=== PATIENT | male | born 1985 | race Caucasian/White ===

== ENCOUNTER 2017-07-06 15:33 | Inpatient (IN) | payer SELFPAY ==
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
[2017-07-06 17:17] LABS: % IMMATURE GRANULYOCYTES 0.3 % (0.0-1.1); ABSOLUTE IMMATURE GRANULOCYTES 0.03 10^3/uL (0.00-0.10); ADD DIFF? NO; ADD MORPH? NO; ADD SCAN? NO; ATYPICAL LYMPHOCYTE FLAG 20 (0-99); FRAGMENT RBC FLAG 0 (0-99); HEMATOCRIT 36.6 % (40.0-51.0); HEMOGLOBIN 11.5 g/dL (13.7-17.5); LEFT SHIFT FLG 0 (0-99); LIPEMIA HEMOLYSIS FLAG 80 (0-99); MEAN CELL HEMOGLOBIN 32.2 pg (27.9-34.1); MEAN CELL HEMOGLOBIN CONCENTR. 31.4 g/dL (32.4-36.7); MEAN CELL VOLUME 102.5 fL (81.5-99.8); MEAN PLATELET VOLUME 9.6 fL (8.7-11.7); PLATELET CLUMPS FLAG 0 (0-99); PLATELET COUNT 168 10^3/uL (150-400); RED BLOOD CELL COUNT 3.57 10^6/uL (4.40-6.38)
[2017-07-06 17:31] LABS: ALANINE AMINOTRANSFERASE 56 IU/L (21-72); ALBUMIN 3.9 g/dL (3.5-5.0); ALKALINE PHOSPHATASE 178 IU/L (38-126); ANION GAP 20 mEq/L (8-16); ASPARTATE AMINOTRANSFERASE 45 IU/L (17-59); BILIRUBIN,TOTAL 0.8 mg/dL (0.1-1.4); BILIRUBIN-CONJUGATED 0.7 mg/dL (0.0-0.5); BILIRUBIN-UNCONJUGATED 0.1 mg/dL (0.0-1.1); CALCIUM 8.8 mg/dL (8.5-10.4); CARBON DIOXIDE 24 mEq/l (22-31); CHLORIDE 93 mEq/L (97-110); GLOMERULAR FILTRATION RATE 7; GLUCOSE 81 mg/dL (70-100); POTASSIUM 4.8 mEq/L (3.5-5.2); SODIUM 137 mEq/L (134-144); TOTAL PROTEIN 9.1 g/dL (6.3-8.2)
--- NOTE | 2017-07-06 18:46 | SOAPPROG ---
SOAP Progress Note Assessment/Plan: Assessment: please see dictation # [id number] pager [phone] I discussed my recs with ER team and hospitalist pager [phone] 07/06/17 19:41 Objective: Vital Signs Temp Pulse Resp BP Pulse Ox 37.1 C 80 16 152/97 H 96 07/06/17 15:46 07/06/17 15:46 07/06/17 15:46 07/06/17 15:46 07/06/17 15:46 ICD10 Worksheet Patient Problems: Problems Problem Status Onset Dependent on hemodialysis Acute Encephalopathy Acute Renal failure (ARF), acute on chronic Acute Weakness generalized Acute
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
[2017-07-06] MEDS ORDERED: ONDANSETRON DISINTEGRATING 4 MG TAB PO PRN (20:18)
[2017-07-06] MEDS ORDERED: ACETAMINOPHEN 325 MG TAB PO PRN (20:18)
[2017-07-06] MEDS ORDERED: ONDANSETRON 4 MG/2 ML VIAL IVP PRN (20:18)
[2017-07-06] MEDS: BISOPROLOL FUMARATE 5 MG TAB PO SCH (20:49)
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
--- NOTE | 2017-07-06 20:59 | CPEKG ---
Heart Rate: 81 RR Interval: 741 P-R Interval: 208 QRSD Interval: 100 QT Interval: 384 QTC Interval: 446 P Maribel: 64 QRS Maribel: 10 T Wave Maribel: 96 EKG Severity - ABNORMAL ECG - EKG Impression: SINUS RHYTHM EKG Impression: PROBABLE LEFT ATRIAL ABNORMALITY EKG Impression: LEFT VENTRICULAR HYPERTROPHY WITH ASSOCIATED REPOLARIZATION ABNORMALITIES Electronically Signed By: Karen Lang 07-Jul-2017 10:40:11
[2017-07-06] MEDS ORDERED: traZODone 50 MG TAB PO PRN (21:20)
[2017-07-07 04:55] LABS: ALBUMIN 3.7 g/dL (3.5-5.0); ANION GAP 19 mEq/L (8-16); CALCIUM 8.5 mg/dL (8.5-10.4); CARBON DIOXIDE 20 mEq/l (22-31); CHLORIDE 96 mEq/L (97-110); GLOMERULAR FILTRATION RATE 6; GLUCOSE 81 mg/dL (70-100); SODIUM 135 mEq/L (134-144)
[2017-07-07 05:16] LABS: CREATININE 9.6 mg/dL (0.7-1.3); POTASSIUM 6.3 mEq/L (3.5-5.2)
[2017-07-07] MEDS: BISOPROLOL FUMARATE 5 MG TAB PO SCH ×2 (10:09→21:46)
[2017-07-07] MEDS: CALCIUM ACETATE 667 MG CAP PO SCH ×3 (10:10→17:59)
--- NOTE | 2017-07-07 10:51 | SOAPPROG ---
[facility] Progress Note Assessment/Plan: Assessment:Plan: ESRD-stable on Hd -he wanted to run for 4 hours and have 4 kg removed -this would have amounted to 20ml/kg/hr, well above the accepted max of 12- 13ml -he has had no dialysis for one week -azotemic -overloaded -will plan for Hd again tomorrow Access-stable L sided AVF Renal transplant-failed after 5 years -has intermittent tenderness of allograft per patient's report Dispo-from [facility] -unclear to me if he has a special situation that would qualify him for refugee status or asylum -at this point it appears he has no coverage for outpatient services, but this needs to be investigated -in the meantime, will plan for daily dialysis here as inpatient -if he is uninsured and will be unable to qualify for special assistance or coverage, his chronic treatment option may be to come to hospital for intermittent emergency dialysis -I am happy to see him in my office for other ongoing medical needs, but there is not an option to get free dialysis as an outpatient -to pay out of pocket for dialysis in a free-standing clinic the cost is excessive. This was discussed with patient and his sister 07/07/17 10:45 Subjective: stable on dialysis Objective: Vital Signs Temp Pulse Resp BP Pulse Ox 36.6 C 86 14 157/102 H 94 07/07/17 10:07 07/07/17 10:07 07/07/17 10:07 07/07/17 10:07 07/07/17 10:07 Laboratory Results 07/07/17 04:14 07/06/17 07/07/17 07/08/17 05:59 05:59 05:59 Intake Total 325 Balance 325 Physical Exam - Physical Exam General Appearance: alert, no apparent distress, thin EENT: normal ENT inspection Neck: normal inspection Respiratory: decreased breath sounds, No normal breath sounds, No respiratory distress Cardiac/Chest: regular rate, rhythm, systolic murmur, other (bruit from AVF transmitted into chest) Abdomen: normal bowel sounds, non-tender, soft, other (RLQ renal allograft), No organomegaly, No hepatomegaly, No splenomegaly Skin: normal color, warm/dry Extremities: No swelling Neuro/Psych: no motor/sensory deficits, alert, normal mood/affect, oriented x 3 ICD10 Worksheet Patient Problems: Problems Problem Status Onset Dependent on hemodialysis Acute Encephalopathy Acute Renal failure (ARF), acute on chronic Acute Weakness generalized Acute
--- NOTE | 2017-07-07 15:44 | HOSPPROG ---
Hospitalist Progress Note Assessment/Plan: * hyperkalemia and uremia secondary to end-stage renal disease * Getting dialysis today and tomorrow * history of IgA nephropathy * history of kidney transplant * social - undocumented and thus with no dialysis benefits * Will probably have to come to the hospital for dialysis Subjective: No new complaints Objective: Vital Signs Temp Pulse Resp BP Pulse Ox 36.6 C 83 16 155/106 H 91 L 07/07/17 15:26 07/07/17 15:26 07/07/17 15:26 07/07/17 15:26 07/07/17 15:26 Laboratory Results 07/07/17 04:14 07/06/17 07/07/17 07/08/17 05:59 05:59 05:59 Intake Total 325 Balance 325 - Physical Exam Constitutional: no apparent distress, appears nourished, not in pain Eyes: anicteric sclera, EOMI Ears, Nose, Mouth, Throat: moist mucous membranes, hearing normal Cardiovascular: regular rate and rhythym Respiratory: no respiratory distress Gastrointestinal: normoactive bowel sounds, soft, non-tender abdomen, no palpable masses Musculoskeletal: other (Left AV fistula) Neurologic: AAOx3 Psychiatric: interacting appropriately, not anxious, not encephalopathic, thought process linear ICD10 Worksheet Patient Problems: Problems Problem Status Onset Dependent on hemodialysis Acute Encephalopathy Acute Renal failure (ARF), acute on chronic Acute Weakness generalized Acute
--- NOTE | 2017-07-07 16:10 | ASMTCMCOM ---
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 Discussed difficulties finding scheduled dialysis d/t lack of insurance. Pt reports plan to live w/sister in [place]. Pt came to [place] from [facility] with Mother recently. Sister who lives in [place] drove to meet him at airport in [place]. They drove straight to [facility] ER for Dialysis from [place]. Pt reports desire to work once on regular dialysis and feeling better. Pt has not started a formal process to apply for citizenship here in making him ineligible for Medicaid or other insurance options. Case Management provided pt information for [facility] and [facility] as community resources. Pt had no questions. Pt plans to return to sister's house upon d/c. Case Management d/c poc: Home independent w/follow up as directed by . Case Management available if needs change. Date Signed: 07/07/2017 04:10 PM Electronically Signed By:Robyn Farfan
[2017-07-08] MEDS: BISOPROLOL FUMARATE 5 MG TAB PO SCH ×2 (07:35→21:15)
[2017-07-08] MEDS: CALCIUM ACETATE 667 MG CAP PO SCH ×3 (07:35→18:41)
[2017-07-08] MEDS ORDERED: PNEUMOCOCCAL 0.5ML VACCINE VIAL IM ONE ×2 (09:50→19:00)
--- NOTE | 2017-07-08 14:29 | SOAPPROG ---
[facility] Progress Note Assessment/Plan: Assessment: ESRD hyperkalemia Very high globulin fraction Plan: HD today HD tomorrow evaluate for paraproteinemia 07/08/17 14:26 07/08/17 14:30 Subjective: a little nauseated no cp or sob appetite OK, doesn't like the renal diet here spirits otherwise OK tired today Objective: Vital Signs Temp Pulse Resp BP Pulse Ox 36.2 C 73 14 157/104 H 100 07/08/17 11:51 07/08/17 11:51 07/08/17 11:51 07/08/17 11:51 07/08/17 11:51 Laboratory Results 07/07/17 04:14 07/07/17 07/08/17 07/09/17 05:59 05:59 05:59 Intake Total 325 670 Balance 325 670 Physical Exam - Physical Exam General Appearance: WD/WN, alert, thin Respiratory: No rhonchi, No wheezing Cardiac/Chest: regular rate, rhythm, systolic murmur, No edema, No friction rub Abdomen: normal bowel sounds, non-tender, soft Extremities: other (LUE AVF, well developed), No pedal edema Neuro/Psych: alert, normal mood/affect, oriented x 3 ICD10 Worksheet Patient Problems: Problems Problem Status Onset Dependent on hemodialysis Acute Encephalopathy Acute Renal failure (ARF), acute on chronic Acute Weakness generalized Acute
--- NOTE | 2017-07-08 15:40 | HOSPPROG ---
Hospitalist Progress Note Assessment/Plan: * hyperkalemia and uremia secondary to end-stage renal disease * Getting dialysis today and tomorrow * history of IgA nephropathy * history of kidney transplant * social - undocumented and thus with no dialysis benefits * Will probably have to come to the hospital for dialysis Subjective: No new complaints. Does not like renal diet Objective: Vital Signs Temp Pulse Resp BP Pulse Ox 36.2 C 73 14 157/104 H 100 07/08/17 11:51 07/08/17 11:51 07/08/17 11:51 07/08/17 11:51 07/08/17 11:51 Laboratory Results 07/07/17 04:14 07/07/17 07/08/17 07/09/17 05:59 05:59 05:59 Intake Total 325 670 Balance 325 670 - Physical Exam Constitutional: no apparent distress, appears nourished, not in pain Eyes: anicteric sclera, EOMI Ears, Nose, Mouth, Throat: moist mucous membranes, hearing normal Cardiovascular: regular rate and rhythym, no murmur, rub, or gallop Respiratory: no respiratory distress Skin: warm Neurologic: AAOx3 Psychiatric: interacting appropriately, not anxious, not encephalopathic, thought process linear ICD10 Worksheet Patient Problems: Problems Problem Status Onset Dependent on hemodialysis Acute Encephalopathy Acute Renal failure (ARF), acute on chronic Acute Weakness generalized Acute
[2017-07-08] MEDS ORDERED: NS 100 ML IV PRN (18:19)
[2017-07-08] MEDS ORDERED: ACETAMINOPHEN 325 MG TAB PO PRN (18:45)
[2017-07-08] MEDS ORDERED: CETIRIZINE 10 MG TAB PO ONE (20:49)
[2017-07-09 04:06] VITALS: RESP 15
[2017-07-09 04:58] LABS: ALBUMIN 3.3 g/dL (3.5-5.0); ANION GAP 14 mEq/L (8-16); CALCIUM 8.6 mg/dL (8.5-10.4); CARBON DIOXIDE 27 mEq/l (22-31); CHLORIDE 92 mEq/L (97-110); CREATININE 6.1 mg/dL (0.7-1.3); GLOMERULAR FILTRATION RATE 11; GLUCOSE 124 mg/dL (70-100); SODIUM 133 mEq/L (134-144)
[2017-07-09 07:49] VITALS: TEMP 97.7; O2SAT 94
[2017-07-09] MEDS: CALCIUM ACETATE 667 MG CAP PO SCH ×2 (09:03→13:45)
[2017-07-09] MEDS ORDERED: CETIRIZINE 10 MG TAB PO ONE (09:47)
--- NOTE | 2017-07-09 12:33 | SOAPPROG ---
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 -has intermittent tenderness of allograft per patient's report Dispo-from [facility] -unclear to me if he has a special situation that would qualify him for refugee status or asylum -at this point it appears he has no coverage for outpatient services, but this needs to be investigated -in the meantime, will plan for daily dialysis here as inpatient -if he is uninsured and will be unable to qualify for special assistance or coverage, his chronic treatment option may be to come to hospital for intermittent emergency dialysis -I am happy to see him in my office for other ongoing medical needs, but there is not an option to get free dialysis as an outpatient -to pay out of pocket for dialysis in a free-standing clinic the cost is excessive. This was discussed with patient and his sister -notes from other providers reviewed -family and patient appear to be well-aware of issues and options -likely home today 07/09/17 12:32 Subjective: stable on Hd Objective: Vital Signs Temp Pulse Resp BP Pulse Ox 36.5 C 76 15 159/111 H 94 07/09/17 07:49 07/09/17 07:49 07/09/17 07:49 07/09/17 07:49 07/09/17 07:49 Laboratory Results 07/09/17 03:49 07/08/17 07/09/17 07/10/17 05:59 05:59 05:59 Intake Total 670 700 Balance 670 700 Physical Exam - Physical Exam General Appearance: WD/WN, alert, no apparent distress, thin EENT: normal ENT inspection Neck: normal inspection Respiratory: lungs clear, normal breath sounds, decreased breath sounds (just at bases), No respiratory distress Cardiac/Chest: regular rate, rhythm, systolic murmur Abdomen: normal bowel sounds, non-tender, soft, No organomegaly, No hepatomegaly , No splenomegaly Back: Normal inspection Skin: normal color, warm/dry Extremities: No swelling Neuro/Psych: no motor/sensory deficits, alert, normal mood/affect ICD10 Worksheet Patient Problems: Problems Problem Status Onset Dependent on hemodialysis Acute Encephalopathy Acute Renal failure (ARF), acute on chronic Acute Weakness generalized Acute
[2017-07-09] MEDS: BISOPROLOL FUMARATE 5 MG TAB PO SCH (14:22)
[2017-07-09 14:24] VITALS: BP 165/107; PULSE 85
--- NOTE | 2017-07-09 14:25 | GDS ---
[f rep st] DISCHARGE SUMMARY DISCHARGE DIAGNOSES: 1. End-stage renal disease with hyperkalemia and uremia. 2. History of IgA nephropathy. 3. History of transplanted kidney. HISTORY: This is a 32-year-old male with history of end-stage renal disease, who fled from [facility] and arrived in [place] the day of admission. He came in with a need for dialysis. HOSPITAL COURSE: Patient was admitted and dialyzed 3 times. He is feeling a lot better and will be discharged home. Unfortunately, he is undocumented, and thus, will have to come back to the hospital for dialysis within a week. /[id number]/MODL
[2017-07-09] MEDS ORDERED: PNEUMOCOCCAL 0.5ML VACCINE VIAL IM ONE (17:13)
[2017-07-09 17:22] LABS: IG KAPPA FREE LIGHT CHAIN 63.3 mg/dL; IG LAMBDA FREE LIGHT CHAIN 59.1 mg/dL; KAPPA/LAMBDA RATIO 1.07
== END 2017-07-09 17:39 | disposition home or self-care (01) | DRG 640 ==
LOC: F2W 19:49
PROVIDERS: ADMIT Internal Medicine; ATTEND Internal Medicine
PROC: 5A1D60Z (ICD-10-PCS; principal; 2017-07-06)
DX: E87.5 Hyperkalemia (principal); N18.6 End stage renal disease; N02.8 Recurrent and persistent hematuria with other morphologic changes; D63.1 Anemia in chronic kidney disease; N25.81 Secondary hyperparathyroidism of renal origin; Z94.0 Kidney transplant status; Z99.2 Dependence on renal dialysis
CPT/HCPCS: 82595-90; 86334-90; 86705-90; G0009; G0472

== ENCOUNTER 2017-07-11 17:56 | Inpatient (IN) | payer SELFPAY ==
--- NOTE | 2017-07-11 18:32 | CPEKG ---
Heart Rate: 82 RR Interval: 732 P-R Interval: 196 QRSD Interval: 102 QT Interval: 372 QTC Interval: 435 P [place]: 58 QRS [place]: 7 T Wave [place]: 88 EKG Severity - ABNORMAL ECG - EKG Impression: SINUS RHYTHM EKG Impression: PROBABLE LEFT ATRIAL ABNORMALITY EKG Impression: LEFT VENTRICULAR HYPERTROPHY EKG Impression: ABNORMAL T, CONSIDER ISCHEMIA, LATERAL LEADS Electronically Signed By: Evelia Lr 11-Jul-2017 20:01:11
[2017-07-11 18:35] LABS: % IMMATURE GRANULYOCYTES 0.3 % (0.0-1.1); ABSOLUTE IMMATURE GRANULOCYTES 0.03 10^3/uL (0.00-0.10); ADD DIFF? NO; ADD MORPH? NO; ADD SCAN? NO; ATYPICAL LYMPHOCYTE FLAG 10 (0-99); FRAGMENT RBC FLAG 0 (0-99); HEMATOCRIT 34.6 % (40.0-51.0); HEMOGLOBIN 11.1 g/dL (13.7-17.5); LEFT SHIFT FLG 0 (0-99); LIPEMIA HEMOLYSIS FLAG 80 (0-99); MEAN CELL HEMOGLOBIN 32.6 pg (27.9-34.1); MEAN CELL HEMOGLOBIN CONCENTR. 32.1 g/dL (32.4-36.7); MEAN CELL VOLUME 101.5 fL (81.5-99.8); MEAN PLATELET VOLUME 9.8 fL (8.7-11.7); PLATELET CLUMPS FLAG 0 (0-99); PLATELET COUNT 198 10^3/uL (150-400); RED BLOOD CELL COUNT 3.41 10^6/uL (4.40-6.38); RED CELL DISTRIBUTION WIDTH 15.1 % (11.5-15.2)
[2017-07-11] MEDS ORDERED: ONDANSETRON 4 MG/2 ML VIAL IVP ONE (18:46)
[2017-07-11 18:47] LABS: ANION GAP 15 mEq/L (8-16); CARBON DIOXIDE 19 mEq/l (22-31); CHLORIDE 98 mEq/L (97-110); GLOMERULAR FILTRATION RATE 8; GLUCOSE 88 mg/dL (70-100); SODIUM 132 mEq/L (134-144)
[2017-07-11 18:52] LABS: CREATININE 7.6 mg/dL (0.7-1.3); POTASSIUM 6.5 mEq/L (3.5-5.2)
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
--- NOTE | 2017-07-11 19:50 | EDPHY ---
H & P Stated Complaint: sob cough since this am--got dialysis -abd, cp, bk pain Time Seen by Provider: 07/11/17 18:14 HPI/ROS: Chief complaint: Shortness of breath, needs dialysis History of present illness: This is a 32-year-old male who presents to the emergency department reporting shortness of breath. He believes he needs dialysis. Patient has a history of end-stage renal disease secondary to IgA nephropathy. He recently immigrated from [facility]. He was admitted to this hospital from July 06 to July 11 for dialysis and care. He has had increasing trouble breathing over the last few days. He did also reports nausea and vomiting. Review of systems: A 10 point review of systems was obtained and other than described above was negative - Personal History Current Tetanus/Diphtheria Vaccine: Unsure Current Tetanus Diphtheria and Acellular Pertussis (TDAP): Unsure - Medical/Surgical History Hx Asthma: No Hx Chronic Respiratory Disease: No Hx Diabetes: No Hx Cardiac Disease: No Hx Renal Disease: Yes Hx Cirrhosis: No Hx Alcoholism: No Hx HIV/AIDS: No Hx Splenectomy or Spleen Trauma: No Other PMH: KIDNEY FAILURE,--dialysis not on regular basis on prn emerg - Social History Smoking Status: Never smoked - Physical Exam Exam: General Appearance: Alert, unwell appearing. Eyes: Pupils equal and round no pallor or injection. ENT, Mouth: Mucous membranes moist. Respiratory: There are no retractions, lungs are clear to auscultation. Cardiovascular: Regular rate and rhythm. Gastrointestinal: Abdomen is soft and non tender, no masses, bowel sounds normal. Neurological: Alert. Strength and sensation intact and symmetrical. Skin: Warm and dry, no rashes. Musculoskeletal: Neck is supple non tender. Extremities are symmetrical, full range of motion. Psychiatric: Patient is oriented X 3, there is no agitation. Constitutional: Initial Vital Signs Temperature (C) 37.2 C 07/11/17 18:05 Heart Rate 82 07/11/17 18:05 Respiratory Rate 18 07/11/17 18:05 Blood Pressure 153/105 H 07/11/17 18:05 O2 Sat (%) 98 07/11/17 18:05 O2 Delivery Mode Room Air Allergies/Adverse Reactions: heparin Allergy (Verified 07/06/17 15:53) Home Medications: Medication Instructions Recorded Bisoprolol Fumarate 1.25 mg PO BID #30 tablet 07/09/17 CALCIUM ACETATE [PHOSLO] 667 mg PO TIDMEAL #90 tablet 07/09/17 Medical Decision Making ED Course/Re-evaluation: Patient is discussed with my secondary supervising physician Dr. Evelia Lr. Patient presents to the emergency department for shortness of breath. He believes he needs dialysis. He does have concerning electrolyte changes specifically a potassium of 6.5. Nephrology is in the emergency department for another patient and has seen this patient and arranged for emergent dialysis. Patient is admitted to the hospitalist service, Dr. Dominguez Rojas for further care. Differential Diagnosis: Included but not limited to renal failure, renal failure with complications such as electrolyte disturbances EKG disturbances, infectious pathology - Data Points Laboratory Results: Laboratory Results 07/11/17 18:22 07/11/17 18:22 07/11/17 07/11/17 18:22 18:22 WBC 11.70 10^3/uL H 10^3/uL (3.80-9.50) RBC 3.41 10^6/uL L 10^6/uL (4.40-6.38) Hgb 11.1 g/dL L g/dL (13.7-17.5) Hct 34.6 % L % (40.0-51.0) MCV 101.5 fL H fL (81.5-99.8) MCH 32.6 pg pg (27.9-34.1) MCHC 32.1 g/dL L g/dL (32.4-36.7) RDW 15.1 % % (11.5-15.2) Plt Count 198 10^3/uL 10^3/uL (150-400) MPV 9.8 fL fL (8.7-11.7) Neut % (Auto) 42.1 % % (39.3-74.2) Lymph % (Auto) 43.7 % % (15.0-45.0) [place] % (Auto) 8.9 % % (4.5-13.0) Eos % (Auto) 3.9 % % (0.6-7.6) Baso % (Auto) 1.1 % % (0.3-1.7) Nucleat RBC Rel Count 0.0 % % (0.0-0.2) Absolute Neuts (auto) 4.93 10^3/uL 10^3/uL (1.70-6.50) Absolute Lymphs (auto) 5.11 10^3/uL H 10^3/uL (1.00-3.00) Absolute Monos (auto) 1.04 10^3/uL H 10^3/uL (0.30-0.80) Absolute Eos (auto) 0.46 10^3/uL H 10^3/uL (0.03-0.40) Absolute Basos (auto) 0.13 10^3/uL H 10^3/uL (0.02-0.10) Absolute Nucleated RBC 0.00 10^3/uL 10^3/uL (0-0.01) Immature Gran % 0.3 % % (0.0-1.1) Immature Gran # 0.03 10^3/uL 10^3/uL (0.00-0.10) Sodium 132 mEq/L L mEq/L (134-144) Potassium 6.5 mEq/L H* mEq/L (3.5-5.2) Chloride 98 mEq/L mEq/L (97-110) Carbon Dioxide 19 mEq/l L D mEq/l (22-31) Anion Gap 15 mEq/L mEq/L (8-16) BUN 68 mg/dL H mg/dL (7-23) Creatinine 7.6 mg/dL H* mg/dL (0.7-1.3) Estimated GFR 8 Glucose 88 mg/dL mg/dL (70-100) Calcium 9.0 mg/dL mg/dL (8.5-10.4) Medications Given: Discontinued Medications Ondansetron HCl (Zofran) 4 mg IVP EDNOW ONE Stop: 07/11/17 18:47 Last Admin: 07/11/17 18:51 Dose: 4 mg Departure - Departure Disposition: [facility] Acute Clinical Impression: Hyperkalemia Renal failure (ARF), acute on chronic Qualifiers: Acute renal failure type: unspecified Chronic kidney disease stage: unspecified stage Qualified Code(s): N17.9 - Acute kidney failure, unspecified; N18.9 - Chronic kidney disease, unspecified Condition: Fair Referrals: NONE *PRIMARY CARE P,. [Primary Care Provider] - As per Instructions
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
[2017-07-12 04:43] LABS: % IMMATURE GRANULYOCYTES 0.2 % (0.0-1.1); ABSOLUTE IMMATURE GRANULOCYTES 0.02 10^3/uL (0.00-0.10); ADD DIFF? NO; ADD MORPH? NO; ADD SCAN? NO; ATYPICAL LYMPHOCYTE FLAG 10 (0-99); FRAGMENT RBC FLAG 0 (0-99); HEMATOCRIT 33.1 % (40.0-51.0); HEMOGLOBIN 10.6 g/dL (13.7-17.5); LEFT SHIFT FLG 0 (0-99); LIPEMIA HEMOLYSIS FLAG 80 (0-99); MEAN PLATELET VOLUME 9.8 fL (8.7-11.7); PLATELET CLUMPS FLAG 0 (0-99); PLATELET COUNT 152 10^3/uL (150-400); RED BLOOD CELL COUNT 3.31 10^6/uL (4.40-6.38); RED CELL DISTRIBUTION WIDTH 15.1 % (11.5-15.2)
[2017-07-12 05:08] LABS: ALBUMIN 3.6 g/dL (3.5-5.0); ANION GAP 15 mEq/L (8-16); CALCIUM 8.5 mg/dL (8.5-10.4); CARBON DIOXIDE 26 mEq/l (22-31); CHLORIDE 93 mEq/L (97-110); CREATININE 4.6 mg/dL (0.7-1.3); GLOMERULAR FILTRATION RATE 15; GLUCOSE 118 mg/dL (70-100); POTASSIUM 4.7 mEq/L (3.5-5.2); SODIUM 134 mEq/L (134-144)
[2017-07-12 07:11] VITALS: O2SAT 93
[2017-07-12] MEDS ORDERED: BISOPROLOL FUMARATE 5 MG TAB PO SCH (09:00)
[2017-07-12] MEDS: CALCIUM ACETATE 667 MG CAP PO SCH ×2 (09:37→12:11)
--- NOTE | 2017-07-12 10:39 | SOAPPROG ---
[facility] Progress Note Assessment/Plan: Assessment/Plan: ESRD: pt just arrived from [facility] and does not have an outpatient dialiysis unit. - HD done yesterday. - HD being done again today, likely can go home afterward. - Pt is working to get an established unit, although this may be difficult. - Pt to return prn emergent symptoms. Hyperkalemia: improved on HD, pt should continue a low K diet on discharge. Hypervolemia: improved with HD, pt should limit his fluid intake. Anemia: no need for epo at this time. Subjective: Pt had HD yesterday with 3L removed, tolerated well. He notes his abdominal pain and chest pain are much improved and breathing feels comfortable. Objective: Vital Signs Temp Pulse Resp BP Pulse Ox 36.8 C 80 16 151/104 H 93 07/12/17 07:09 07/12/17 07:09 07/12/17 07:09 07/12/17 07:09 07/12/17 07:09 Laboratory Results 07/12/17 03:59 07/12/17 03:59 07/11/17 07/12/17 07/13/17 05:59 05:59 05:59 Intake Total 100 600 Balance 100 600 General: alert and oriented, no acute distress Eyes; EOMI, PERRL OP: clear CV: RRR REsp: CTAB, nonlabored respirations on RA Abd: Soft, NT/ND Ext: no edema Access: LUE AVF cannulated Neuro: CN II-XII grossly intact, no asterixis Psych: cooperative, appropriate mood and affect ICD10 Worksheet Patient Problems: Problems Problem Status Onset Hyperkalemia Acute Renal failure (ARF), acute on chronic Acute Dependent on hemodialysis Acute Encephalopathy Acute Weakness generalized Acute
[2017-07-12 12:11] VITALS: BP 152/108; PULSE 88
[2017-07-12 12:19] VITALS: RESP 18; TEMP 97.9
--- NOTE | 2017-07-12 14:06 | GDS ---
[f rep st] DISCHARGE SUMMARY DISCHARGE DIAGNOSES: 1. End-stage renal disease. 2. Hyperkalemia. 3. Uremia. 4. History of failed renal transplant. HISTORY: This is a 32-year-old male, without outpatient dialysis benefits, who presented with abdomi nal pain and hyperkalemia and symptoms of uremia. HOSPITAL COURSE: The patient did have a CAT scan of his abdomen which was negative. He was dialyzed a few times, and his symptoms have resolved. His labs are normal. He will be discharged to home. /[id number]/MODL
== END 2017-07-12 12:54 | disposition home or self-care (01) | DRG 640 ==
LOC: F2W 07-12 00:23
PROVIDERS: ADMIT Family Medicine; ATTEND Family Medicine
PROC: 5A1D60Z (ICD-10-PCS; principal; 2017-07-11)
DX: E87.5 Hyperkalemia (principal); N18.6 End stage renal disease; Z94.0 Kidney transplant status; D64.9 Anemia, unspecified; E87.70 Fluid overload, unspecified; Z99.2 Dependence on renal dialysis
CPT/HCPCS: 96374; J2405

== ENCOUNTER 2017-07-15 15:01 | Inpatient (IN) | payer SELFPAY ==
--- NOTE | 2017-07-15 15:24 | EDPHY ---
H & P Time Seen by Provider: 07/15/17 15:22 HPI/ROS: CHIEF COMPLAINT: Needs dialysis HISTORY OF PRESENT ILLNESS: Does not have outpatient access to dialysis, has renal failure from IgA nephropathy and failed renal transplant in 2011. Presents with typical symptoms which include dyspnea and abdominal bloating and distention. Symptoms moderate. Not associated with chest pain or cough or leg swelling. Symptoms moderate to severe. Present for the past 24 hours. REVIEW OF SYSTEMS: Eye: no change in vision ENT: no sore throat Cardiac: no chest pain or syncope Pulmonary: HPI Abdomen: HPI in no vomiting or diarrhea Musculoskeletal: no back pain Skin: no rash Neuro: no headache Constitutional: no fever : Does not make urine, no change A comprehensive 10 point review of systems is otherwise negative aside from elements mentioned in the history of present illness. PAST MEDICAL HISTORY: Includes left upper extremity fistula, renal transplant 2011, history of IgA nephropathy and renal failure Social history: Nonsmoker, recent immigrant from [facility] General Appearance: Alert and conversant, cooperative. Eyes: No scleral icterus. ENT, Mouth: Normal mucous membranes. Respiratory: Normal respiratory effort, breath sounds equal, lungs are clear to auscultation. No rales. Cardiovascular: Regular rate and rhythm. Left arm fistula with a thrill present. Gastrointestinal: Minimal abdominal tenderness, mildly distended, no rebound or guarding. Neurological: Alert and oriented x3. Normally conversant. Face symmetric, normal movement and sensation in all extremities. Skin: Warm and dry, no rashes. Musculoskeletal: No peripheral edema and no joint swelling. Psychiatric: Not agitated. Emergency Department course/MDM: Patient presents with his typical symptoms of uremia. Plan for i-STAT and labs , EKG. Admission for dialysis. 1600: Potassium 6.8. Consultation with Nephrology and hospitalist for admission for emergent dialysis. Administration of 10 units IV insulin, 25 g glucose, 10 mL is 10% calcium gluconate. 1603: Patti to admit. 1621: Milind for [facility]; will arrange dialysis tonight. Smoking Status: Never smoked Constitutional: Initial Vital Signs Temperature (C) 36.5 C 07/15/17 15:08 Heart Rate 77 07/15/17 15:08 Blood Pressure 149/100 H 07/15/17 15:08 O2 Sat (%) 100 07/15/17 15:08 O2 Delivery Mode Room Air Allergies/Adverse Reactions: heparin Allergy (Verified 07/06/17 15:53) Home Medications: Medication Instructions Recorded Bisoprolol Fumarate 1.25 mg PO BID #30 tablet 07/09/17 CALCIUM ACETATE [PHOSLO] 667 mg PO TIDMEAL #90 tablet 07/09/17 Cetirizine [ZyrTEC 10 mg (*)] 10 mg PO DAILY PRN 07/11/17 Medical Decision Making - Diagnostics EKG Interpretation: 12-lead EKG interpreted by me; official reading is in trace master. My interpretation is sinus rhythm rate 75 with first-degree AV block. QRS 106. LVH with repolarization abnormality. Differential Diagnosis: Differential diagnosis considered for shortness of breath including but not limited to pulmonary infectious process, COPD, asthma, pulmonary embolus and congestive heart failure. Critical Care Time: Critical care time spent by me, Dr. Wisdom, exclusively with the care of this patient was 30 minutes, exclusive of PA or REVERBERATORY SKIMMER time and exclusive of separate procedures. The organ system at risk was hyperkalemia, metabolic and I ordered IV insulin and glucose, IV calcium, consultation with Nephrology and hospitalist to stabilize the patient and prevent worsening of the patient's condition. - Data Points Laboratory Results: Laboratory Results 07/15/17 15:46 07/15/17 15:46 07/15/17 07/15/17 07/15/17 15:46 15:46 15:46 WBC 10.43 10^3/uL H 10^3/uL (3.80-9.50) RBC 3.67 10^6/uL L 10^6/uL (4.40-6.38) Hgb 11.9 g/dL L g/dL (13.7-17.5) POC Hgb Hct 37.3 % L % (40.0-51.0) POC Hct MCV 101.6 fL H fL (81.5-99.8) MCH 32.4 pg pg (27.9-34.1) MCHC 31.9 g/dL L g/dL (32.4-36.7) RDW 14.9 % % (11.5-15.2) Plt Count 176 10^3/uL 10^3/uL (150-400) MPV 10.3 fL fL (8.7-11.7) Neut % (Auto) 42.1 % % (39.3-74.2) Lymph % (Auto) 43.7 % % (15.0-45.0) [place] % (Auto) 9.3 % % (4.5-13.0) Eos % (Auto) 3.5 % % (0.6-7.6) Baso % (Auto) 1.2 % % (0.3-1.7) Nucleat RBC Rel Count 0.0 % % (0.0-0.2) Absolute Neuts (auto) 4.39 10^3/uL 10^3/uL (1.70-6.50) Absolute Lymphs (auto) 4.56 10^3/uL H 10^3/uL (1.00-3.00) Absolute Monos (auto) 0.97 10^3/uL H 10^3/uL (0.30-0.80) Absolute Eos (auto) 0.37 10^3/uL 10^3/uL (0.03-0.40) Absolute Basos (auto) 0.12 10^3/uL H 10^3/uL (0.02-0.10) Absolute Nucleated RBC 0.00 10^3/uL 10^3/uL (0-0.01) Immature Gran % 0.2 % % (0.0-1.1) Immature Gran # 0.02 10^3/uL 10^3/uL (0.00-0.10) POC Sodium Sodium 132 mEq/L L mEq/L (134-144) POC Potassium Potassium 6.7 mEq/L H* mEq/L (3.5-5.2) POC Chloride Chloride 96 mEq/L L mEq/L (97-110) Carbon Dioxide 17 mEq/l L mEq/l (22-31) Anion Gap 19 mEq/L H mEq/L (8-16) POC BUN BUN 103 mg/dL H* mg/dL (7-23) Creatinine 9.8 mg/dL H* mg/dL (0.7-1.3) POC Creatinine Estimated GFR 6 Glucose 80 mg/dL mg/dL (70-100) POC Glucose Calcium 9.1 mg/dL mg/dL (8.5-10.4) Phosphorus 4.4 mg/dL mg/dL (2.5-4.5) Iron 75.0 mcg/dL mcg/dL (49.0-199.0) TIBC 251 ug/dL L ug/dL (260-490) Iron Saturation 30 % % (20-55) Ferritin 1690.0 ng/mL H ng/mL (17.9-464.0) Total Bilirubin 0.8 mg/dL mg/dL (0.1-1.4) AST 41 IU/L IU/L (17-59) ALT 44 IU/L IU/L (21-72) Alkaline Phosphatase 174 IU/L H IU/L (38-126) Total Protein 8.8 g/dL H g/dL (6.3-8.2) Albumin 4.1 g/dL g/dL (3.5-5.0) Vitamin B12 619 pg/mL pg/mL (239-931) Folate > 20.00 ng/mL ng/mL (2.80 - >20.00) 07/15/17 15:44 WBC RBC Hgb POC Hgb 13.6 gm/dL L gm/dL (13.7-17.5) Hct POC Hct 40 % % (40-51) MCV MCH MCHC RDW Plt Count MPV Neut % (Auto) Lymph % (Auto) [place] % (Auto) Eos % (Auto) Baso % (Auto) Nucleat RBC Rel Count Absolute Neuts (auto) Absolute Lymphs (auto) Absolute Monos (auto) Absolute Eos (auto) Absolute Basos (auto) Absolute Nucleated RBC Immature Gran % Immature Gran # POC Sodium 133 mEq/L L mEq/L (134-144) Sodium POC Potassium 6.8 mEq/L H* mEq/L (3.3-5.0) Potassium POC Chloride 100 mEq/L mEq/L (97-110) Chloride Carbon Dioxide Anion Gap POC BUN 114 mg/dL H* mg/dL (7-23) BUN Creatinine POC Creatinine 9.9 mg/dL H* mg/dL (0.7-1.3) Estimated GFR Glucose POC Glucose 81 mg/dL mg/dL (70-100) Calcium Phosphorus Iron TIBC Iron Saturation Ferritin Total Bilirubin AST ALT Alkaline Phosphatase Total Protein Albumin Vitamin B12 Folate Medications Given: Discontinued Medications Dextrose (Dextrose 50% Syringe) 25 gm IVP EDNOW ONE Stop: 07/15/17 16:02 Last Admin: 07/15/17 17:22 Dose: 25 gm Calcium Gluconate (Calcium Gluconate 1 Gm (Premix)) 50 mls @ 100 mls/hr IV EDNOW ONE Stop: 07/15/17 16:30 Last Admin: 07/15/17 17:22 Dose: 50 mls Insulin Human Regular (Humulin R) 10 unit IVP EDNOW ONE Stop: 07/15/17 16:02 Last Admin: 07/15/17 17:22 Dose: 10 units Point of Care Test Results: 07/15/17 15:44 POC Sodium 133 L POC Potassium 6.8 H* POC Chloride 100 POC BUN 114 H* POC Creatinine 9.9 H* POC Glucose 81 Departure - Departure Disposition: [facility] Inpatient Acute Clinical Impression: Hyperkalemia Renal failure (ARF), acute on chronic Qualifiers: Acute renal failure type: unspecified Chronic kidney disease stage: on chronic dialysis Qualified Code(s): N17.9 - Acute kidney failure, unspecified Condition: Serious
--- NOTE | 2017-07-15 15:48 | CPEKG ---
Heart Rate: 75 RR Interval: 800 P-R Interval: 216 QRSD Interval: 106 QT Interval: 392 QTC Interval: 438 P Scotia: 58 QRS Scotia: -5 T Wave Scotia: 98 EKG Severity - ABNORMAL ECG - EKG Impression: SINUS RHYTHM EKG Impression: FIRST DEGREE AV BLOCK EKG Impression: PROBABLE LEFT ATRIAL ABNORMALITY EKG Impression: LVH WITH SECONDARY REPOLARIZATION ABNORMALITY Electronically Signed By: Mio Wisdom 15-Jul-2017 15:51:46
[2017-07-15 16:00] LABS: % IMMATURE GRANULYOCYTES 0.2 % (0.0-1.1); ABSOLUTE IMMATURE GRANULOCYTES 0.02 10^3/uL (0.00-0.10); ADD DIFF? NO; ADD MORPH? NO; ADD SCAN? NO; ATYPICAL LYMPHOCYTE FLAG 70 (0-99); FRAGMENT RBC FLAG 0 (0-99); HEMATOCRIT 37.3 % (40.0-51.0); HEMOGLOBIN 11.9 g/dL (13.7-17.5); LEFT SHIFT FLG 0 (0-99); LIPEMIA HEMOLYSIS FLAG 80 (0-99); MEAN CELL HEMOGLOBIN 32.4 pg (27.9-34.1); MEAN CELL HEMOGLOBIN CONCENTR. 31.9 g/dL (32.4-36.7); MEAN CELL VOLUME 101.6 fL (81.5-99.8); MEAN PLATELET VOLUME 10.3 fL (8.7-11.7); PLATELET CLUMPS FLAG 20 (0-99); PLATELET COUNT 176 10^3/uL (150-400); RED BLOOD CELL COUNT 3.67 10^6/uL (4.40-6.38); RED CELL DISTRIBUTION WIDTH 14.9 % (11.5-15.2)
[2017-07-15] MEDS ORDERED: D50W 25 GM/50 ML SYR IVP ONE (16:01)
[2017-07-15] MEDS ORDERED: INSULIN REGULAR HUMAN 100 UNIT/ML IVP ONE (16:01)
[2017-07-15] MEDS ORDERED: CALCIUM GLUCONATE 50 ML IV ONE (16:01)
[2017-07-15] MEDS ORDERED: ACETAMINOPHEN 325 MG TAB PO PRN (16:08)
[2017-07-15] MEDS ORDERED: ONDANSETRON 4 MG/2 ML VIAL IVP PRN (16:08)
[2017-07-15] MEDS ORDERED: ONDANSETRON DISINTEGRATING 4 MG TAB PO PRN (16:08)
[2017-07-15 16:31] LABS: ALANINE AMINOTRANSFERASE 44 IU/L (21-72); ALBUMIN 4.1 g/dL (3.5-5.0); ALKALINE PHOSPHATASE 174 IU/L (38-126); ANION GAP 19 mEq/L (8-16); ASPARTATE AMINOTRANSFERASE 41 IU/L (17-59); BILIRUBIN,TOTAL 0.8 mg/dL (0.1-1.4); CALCIUM 9.1 mg/dL (8.5-10.4); CARBON DIOXIDE 17 mEq/l (22-31); CHLORIDE 96 mEq/L (97-110); GLOMERULAR FILTRATION RATE 6; GLUCOSE 80 mg/dL (70-100); SODIUM 132 mEq/L (134-144); TOTAL PROTEIN 8.8 g/dL (6.3-8.2)
[2017-07-15 16:37] LABS: CREATININE 9.8 mg/dL (0.7-1.3); POTASSIUM 6.7 mEq/L (3.5-5.2)
[2017-07-15 16:56] LABS: % SATURATION 30 % (20-55); TOTAL IRON BINDING CAPACITY 251 ug/dL (260-490)
[2017-07-15] MEDS ORDERED: CETIRIZINE 10 MG TAB PO PRN (17:38)
[2017-07-15 17:53] LABS: FOLATE SERUM > 20.00 ng/mL (2.80 - >20.00)
--- NOTE | 2017-07-15 18:18 | GHP ---
[f rep st] HISTORY AND PHYSICAL DATE OF ADMISSION: 07/15/2017 CHIEF COMPLAINT: Shortness of breath, cough and nausea. HISTORY OF PRESENT ILLNESS: A 32-year-old male with a history of IgA nephropathy and end-stage renal disease status post transplantation 6 years ago in [facility]. The transplantation failed due to acc ess to transplant medication. [place] the [place] recently and has been receiving emergent hemodialysis. He was last admitted on 07/11/2017, received 2 runs of hemodialysis and was discharged on the . The patient reports progressive chest heaviness, cough productive of clear fr othy sputum and severe nausea without hematemesis. The patient denies specific chest pain, but does have the heaviness associated with his shortness of breath, both at rest and with exertion. Denies p alpitations, reports only swelling in his abdomen and minimally so in the face. None in his upper or lower extremities. Describes no itching or rashes. The patient reports being cognizant and careful with his oral intake to avoid fruits and vegetables h igh in potassium, additionally avoiding any juices or other foods that are potassium rich. PAST MEDICAL HISTORY: 1. IgA nephropathy. 2. Status post renal transplantation which has failed requiring hemodialysis. FAMILY HISTORY: Positive for a cousin with polycystic kidney disease. SOCIAL HISTORY: Negative for tobacco, alcohol or illicit drugs. REVIEW OF SYSTEMS: A 10-point review is negative with the exception of that reported in the history of present illness. PHYSICAL EXAMINATION: VITAL SIGNS: Blood pressure is 149/100, heart rate 77, respiratory rate 18, 1 00% on room air, 36.5. GENERAL: This is a thin-appearing, chronically ill appearing young man. LAUREL NT: Exam is notable for dry mucous membranes. Eye exam is negative for any icterus. CARDIAC: Opal ent is regular rate and rhythm. A quiet systolic murmur is heard. PULMONARY: Rales are appreciated bilaterally in the lower lobes, greater on the left than the right. ABDOMEN: Positive bowel sounds . Abdomen is thin and soft. MUSCULOSKELETAL: Negative for any lower extremity edema. SKIN: Negative for any rashes. NEUROLOGIC: He is alert and oriented x3. PSYCHIATRIC: He is anxio us and pleasant on interview and examination. DATA: White count 10.4, hematocrit 37.3, hemoglobin 11.9, platelet count of 179, MCV of 101.6, sodiu m 133, potassium 6.8, creatinine 9.8, bicarb 17, anion gap of 19. EKG which I personally reviewed an d interpreted shows peaked T-waves in lead V3 as well as ST depressions in lead V5 and V6. ASSESSMENT AND PLAN: This is a 32-year-old male presenting with shortness of breath and nausea. 1. Acute life-threatening hyperkalemia. The patient has EKG changes consistent with potassium eleva tion with peak T-waves in his precordial leads. The patient was treated with calcium gluconate, insu magaly and glucose in the emergency department. Nephrology has been contacted and he will receive emerg ent hemodialysis this evening. I suspect the patient will need potassium controlling medication at d isposition. 2. Acute volume overload. Patient does sound as if he has rales on physical examination with sympto ms consistent with pulmonary edema. The patient will be hemodialyzed this evening. 3. Hyponatremia secondary to hypervolemia. Suspect this will improve with hemodialysis. 4. Anion gap metabolic acidosis secondary to end-stage renal disease. Patient requires hemodialysis . Each presentation patient comes in with worsening acidosis. Suspect he may benefit from oral bica rbonate at disposition as well. 5. Macrocytic anemia. Will send folate, B12 and TSH as well as iron studies. With a hemoglobin of 11 he would not be a candidate at this time for epoetin. Prophylaxis with heparin subcu. DIET: Renal with dietary consultation for more potassium medication. DISPOSITION: I expect greater than 2 midnights. The patient is presenting with a life-threatening e lectrolyte abnormality requiring hemodialysis and monitoring. [facility] Patient will be triaged to the PCU for cardiac monitoring and care. /[id number]/MODL
[2017-07-15] MEDS: BISOPROLOL FUMARATE 5 MG TAB PO SCH (22:52)
[2017-07-15] MEDS: NEPHROVITE FOLIC ACID/VIT B&C 1 TAB PO SCH (22:52)
[2017-07-15] MEDS: CALCIUM ACETATE 667 MG CAP PO SCH (22:53)
[2017-07-16 05:38] VITALS: TEMP 98.2
--- NOTE | 2017-07-16 10:03 | SOAPPROG ---
[facility] Progress Note Assessment/Plan: Assessment/Plan: ESRD: IgA nephropathy s/p failed transplant, just moved from [facility] and has no outpatient dialysis unit. - HD done yesterday. - Pt seen on HD again today and much improved. - Pt needs dietary education before discharge about 800ml fluid restriction as well as low K diet, only made it three days before needing emergent dialysis. Hyperkalemia: will modulate with HD, will recheck K post-dialysis today, likely can be discharged today if K fine. Hypervolemia: pt very sensitive to fluid gains with chest pain and dyspnea, will need 800ml fluid restriction on discharge, he eats a lot of ice. EMELY: Phos at goal at 4.4, continue Phoslo with meals. Anemia: No need for epo. Subjective: Mr. Gonzales is a 32 yo M wiht IgA nephropathy s/p failed transplant and on HD , just moved from [facility] and has no outpatient unit at this time. He was last dialyzed 07/11-07/12 and discharged, came back last night again with chest heaviness and hyperkalemia. HD done yesterday and being done again this am, pt notes he is feeling much better, no pain, no dyspnea. Objective: Vital Signs Temp Pulse Resp BP Pulse Ox 36.8 C 82 16 161/119 H 96 07/16/17 05:37 07/16/17 05:37 07/16/17 05:37 07/16/17 05:37 07/16/17 05:37 07/15/17 07/16/17 07/17/17 05:59 05:59 05:59 Intake Total 300 Balance 300 General: alert and oriented, no acute distress Eyes; EOMI, PERRL OP: clear CV: RRR Resp: CTAb, nonlabored respirations on RA Abd: Soft, NT Ext: no edema BLE Neuro: CN II-XII grossly intact, no asterixis Psych; cooperative, appropriate mood and affect Access; LUE AVF cannulated ICD10 Worksheet Patient Problems: Problems Problem Status Onset Hyperkalemia Acute Renal failure (ARF), acute on chronic Acute Dependent on hemodialysis Acute Encephalopathy Acute Weakness generalized Acute
--- NOTE | 2017-07-16 11:46 | HOSPPROG ---
Hospitalist Progress Note Objective: Vital Signs Temp Pulse Resp BP Pulse Ox 36.8 C 82 16 161/119 H 96 07/16/17 05:37 07/16/17 05:37 07/16/17 05:37 07/16/17 05:37 07/16/17 05:37 07/15/17 07/16/17 07/17/17 05:59 05:59 05:59 Intake Total 300 Balance 300 Selected Entries 07/15/17 07/16/17 23:46 05:37 Blood Pressure 168/111 H 161/119 H Laboratory Tests 07/15/17 07/15/17 15:46 15:46 TIBC 251 L Iron Saturation 30 Alkaline Phosphatase 174 H Total Protein 8.8 H Albumin 4.1 Vitamin B12 619 Folate > 20.00 - Time Spent With Patient Time Spent with Patient: greater than 35 minutes Time Spent with Patient: Greater than 35 minutes spent on this patients care, greater than 50% of time spent counseling, educating, and coordinating care regarding the above mentioned plan. - Pending Discharge Pending Discharge Within 24 Hours: Yes Pending Discharge Date: 07/22/17 Pending Discharge Time: 11:00 - Physical Exam Constitutional: no apparent distress, chronically ill appearing Eyes: PERRL, anicteric sclera Ears, Nose, Mouth, Throat: moist mucous membranes, hearing normal Cardiovascular: regular rate and rhythym, no murmur, rub, or gallop Respiratory: no respiratory distress, no rales or rhonchi, clear to auscultation Gastrointestinal: normoactive bowel sounds, soft, non-tender abdomen, no palpable masses Musculoskeletal: full muscle strength Neurologic: AAOx3, CN II-XII Intact Psychiatric: interacting appropriately ICD10 Worksheet Patient Problems: Problems Problem Status Onset Dependent on hemodialysis Acute Encephalopathy Acute End stage renal disease Acute Hyperkalemia Acute Renal failure (ARF), acute on chronic Acute Weakness generalized Acute
[2017-07-16] MEDS: CALCIUM ACETATE 667 MG CAP PO SCH ×2 (12:08→12:09)
[2017-07-16] MEDS: NEPHROVITE FOLIC ACID/VIT B&C 1 TAB PO SCH (12:09)
[2017-07-16] MEDS: BISOPROLOL FUMARATE 5 MG TAB PO SCH (12:09)
[2017-07-16 12:28] VITALS: BP 177/119; PULSE 83; RESP 20; O2SAT 92
[2017-07-16 12:45] LABS: ALBUMIN 3.9 g/dL (3.5-5.0); ANION GAP 14 mEq/L (8-16); CALCIUM 8.9 mg/dL (8.5-10.4); CARBON DIOXIDE 26 mEq/l (22-31); CHLORIDE 95 mEq/L (97-110); CREATININE 3.1 mg/dL (0.7-1.3); GLOMERULAR FILTRATION RATE 23; GLUCOSE 82 mg/dL (70-100); POTASSIUM 3.7 mEq/L (3.5-5.2); SODIUM 135 mEq/L (134-144)
[2017-07-16] MEDS ORDERED: FLU VACC QS 2017-18 (3YR+)/PF 0.5 ML SYR (FLUARIX QUAD) IM ONE (13:49)
--- NOTE | 2017-07-16 16:24 | ASDISCHSUM ---
Discharge Information Plan Status:Home with No Needs Medically Cleared to Leave: Discharge Date:07/16/2017 03:59 PM CM D/C Disposition:Home, Routine, Self-Care ADT D/C Disposition:Home, Routine, Self-Care Projected Discharge Date:07/16/2017 03:59 PM Transportation at D/C:Family Discharge Delay Reason: Follow-Up Date:07/16/2017 03:59 PM Discharge Slot: Final Diagnosis: Placement Information Patient Contact Information Contact Name:ERNIE Relationship:Sister Address: Work Phone: City: [facility] Phone: State/Zip Code: Email: Financial Information Financial Class:Self-Pay Primary Plan Desc:SELF PAY Primary Plan Number: Secondary Plan Desc: Secondary Plan Number: Assessment Information [facility] CM Progress Note CM Note CM Note Notes: 07/16/2017 Case Management note: Met w/sister Mandy ([phone]), mother and pt with janitor caretaker, MARK Mckeon and Dr. Ramires for approximately [address] Ramires discussed medical concerns specificallly importance of pt following low potassium diet. Sister in agreement. Mandy stated robotics application engineer had left materials for how to follow a low potassium diet. Sister Mandy stated that she has been in contact w/[facility] on [place] ([phone]) and [facility] may take pt for regular dialysis on a micah status. Mandy states pt has 6 months to start the process for applying for refugee status. 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 Pt is residing with her. Case Management called [facility] and left vm to confirm start of services. Will follow up tomorrow w/[facility] administrators. Pt d/c home w/sister and mother. Date Signed: 07/16/2017 04:23 PM Electronically Signed By:Robyn Farfan RN Intervention Information
--- NOTE | 2017-07-16 16:24 | ASMTCMCOM ---
CM Note CM Note Notes: 07/16/2017 Case Management note: Met w/sister Mandy ([phone]), mother and pt with foil cutter, MARK Mckeon and Dr. Ramires for approximately [address] Ramires discussed medical concerns specificallly importance of pt following low potassium diet. Sister in agreement. Mandy stated heel shaper had left materials for how to follow a low potassium diet. Sister Mandy stated that she has been in contact w/[facility] on [place] ([phone]) and [facility] may take pt for regular dialysis on a micah status. Mandy states pt has 6 months to start the process for applying for refugee status. 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 Pt is residing with her. Case Management called [facility] and left vm to confirm start of services. Will follow up tomorrow w/[facility] administrators. Pt d/c home w/sister and mother. Date Signed: 07/16/2017 04:23 PM Electronically Signed By:Robyn Farfan RN
--- NOTE | 2017-07-16 17:48 | GDS ---
[f rep st] DISCHARGE SUMMARY KNOWN ACUTE DIAGNOSES: 1. Hyperkalemia. 2. End-stage renal disease status post failed transplant. 3. IgA nephropathy. 4. Status post renal transplantation which failed and now requiring dialysis. CONSULTATION: Nephrology. PROCEDURES: Dialysis. HOSPITAL COURSE: A 32-year-old male who has recently presented to [facility] because o f a failed renal transplant and end-stage renal disease. He is a refugee from [facility], where he aponte d previously a renal transplantation which failed. He has a known by history an IgA nephropathy. He presented with chest heaviness, cough, severe nausea without hematemesis, and was found to have a po tassium of 6.7. He was treated with insulin, glucose, and calcium and received dialysis during the h ospitalization. His electrolytes significantly improved with dialysis. He had 2 runs of dialysis. DISCHARGE MEDICATIONS: Will be the same as his admission medications as follows: Bisoprolol 1.25 mg b.i.d., PhosLo 667 mg t.i.d., Zyrtec 10 mg daily. PLAN: Adin is discharged to his own care. He is an undocumented resident of this facility from [facility]. He is not a documented refugee and is here in this country on a tourist visa. Thus, he will only be available to receive dialysis through the emergency department on an urgent basis. Rupa grajeda a legal services manager, I met with the gentleman together with Case Management. We discussed the fact that he would be best served by reporting to [facility], where they have a unit to manage dialysis for undocumented personnel. In addition, we stressed that he should be on an 800 cc fluid restricted di et and low potassium diet. His sister, who speaks Nepali, and through the legal services manager they affirm th at they have been following this very closely and do not understand why his potassium rises. He repo rts that it was a problem in [facility] during his time of nephrology care there and was also a proble m in [place] when he was briefly in [place]. So we have stressed 3 things with this gentleman, an 800 cc fluid restricted diet per day, a low-potassium diet, an effort to present to the [facility] where they have a unit to care for those dialysis patients who are without insurance coverage. He was also given information on how to obtain a refugee status in this country. The sister reports ag t they have been seen by an agency here in [place] whom she believes may help them obtain a refugee s tatus. Time of this discharge was 45 minutes. Greater than 50% of that time was to have a conference with t myra gentleman as detailed above, explaining factors of diet, potassium, and undocumented status. /[id number]/MODL
--- NOTE | 2017-07-17 14:34 | ASMTCMCOM ---
CM Note CM Note Notes: 07/17/2017 Case Management Note: Case Management in contact with Maria Esther at [facility] [phone], fax [phone] Maria Esther requested medical records re: dialysis flow sheets, chest x ray, vaccinations. Faxed requested documents. Pt to start dialysis at [facility] in [place] on Thursday07/19/2017. Date Signed: 07/17/2017 02:33 PM Electronically Signed By:Robyn Farfan RN
== END 2017-07-16 15:59 | disposition home or self-care (01) | DRG 640 ==
LOC: F2W 18:19
PROVIDERS: ADMIT Hospitalist; ATTEND Hospitalist
PROC: 5A1D60Z (ICD-10-PCS; principal; 2017-07-15)
DX: E87.5 Hyperkalemia (principal); N18.6 End stage renal disease; T86.12 Kidney transplant failure; E87.1 Hypo-osmolality and hyponatremia; E87.70 Fluid overload, unspecified; E87.2 Acidosis; D53.9 Nutritional anemia, unspecified; Z23 Encounter for immunization
CPT/HCPCS: 82607-90; 82947-QW; G0008; J0610; J1815

== ENCOUNTER 2017-07-18 08:46 | Inpatient (IN) | payer SELFPAY ==
--- NOTE | 2017-07-18 09:08 | EDPHY ---
H & P Stated Complaint: Cough, weak; d/c from [facility] 2 days ago; may need dialysis today Time Seen by Provider: 07/18/17 09:02 HPI/ROS: CHIEF COMPLAINT: Cough, need for dialysis HISTORY OF PRESENT ILLNESS: This patient is a 32 year old male with ESRD presenting with cough, nausea, fatigue, and possible need for dialysis. 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 He has been evaluated twice recently in this emergency department and was most recently admitted 07/15/17 for hemodialysis. Case management was able to arrange for outpatient dialysis on Thursday. He is feeling poorly today, with symptoms consistent with his need for dialysis. He has been coughing since yesterday, likely due to fluid buildup. He has clear viscous fluid with associated blood in his sputum. He feels nauseous, fatigued, and weak. His family states these symptoms are usually resolved within 10 minutes of beginning dialysis. No fever. No pedal edema. The patient generally holds fluids in his chest and does not usually present with lower extremity edema. HPI obtained primarily from sister translating at bedside. REVIEW OF SYSTEMS: A 10 point review of systems was performed and is negative with the exception of the elements mentioned in the history of present illness. - Personal History Current Tetanus Diphtheria and Acellular Pertussis (TDAP): Unsure - Medical/Surgical History PMH: IgA nephropathy, End stage renal disease, History of failed transplantation Hx Asthma: No Hx Chronic Respiratory Disease: No Hx Diabetes: No Hx Cardiac Disease: No Hx Renal Disease: Yes Hx Cirrhosis: No Hx Alcoholism: No Hx HIV/AIDS: No Hx Splenectomy or Spleen Trauma: No Other PMH: KIDNEY FAILURE,--dialysis not on regular basis on prn emerg. IgA nephropathy, LUE fistula, dialysis x1 year, h/o failed renal transplant, h/o right allogram, recently moved from [facility] - Social History Smoking Status: Never smoked Additional Social History: Recently moved from [facility]. Macedonian-speaking. Family at bedside. Nonsmoker. - Physical Exam Exam: General Appearance: Pale, appears uncomfortable. Eyes: Pupils equal and round, no conjunctival pallor or injection ENT, Mouth: Mucous membranes moist Neck: Normal inspection Respiratory: Rales at bases bilaterally. Cardiovascular: Regular rate and rhythm Gastrointestinal: Abdomen is soft and non- tender Neurological: A&O, nonfocal, normal gait Skin: Warm and dry, no rash Extremities: Nontender, no pedal edema Psychiatric: Mood and affect normal Constitutional: Initial Vital Signs Temperature (C) 36.8 C 07/18/17 08:48 Heart Rate 76 07/18/17 08:48 Respiratory Rate 20 07/18/17 08:48 Blood Pressure 160/105 H 07/18/17 08:48 O2 Sat (%) 98 07/18/17 08:48 O2 Delivery Mode Room Air Allergies/Adverse Reactions: heparin Allergy (Intermediate, Verified 07/18/17 08:55) generalized rash/severe itching adhesive tape Allergy (Verified 07/18/17 10:36) Home Medications: Medication Instructions Recorded CALCIUM ACETATE [PHOSLO] 667 mg PO TIDMEAL #90 tablet 07/09/17 Cetirizine [ZyrTEC 10 mg (*)] 10 mg PO DAILY PRN 07/11/17 Bisoprolol Fumarate [Zebeta (*)] 1.25 mg PO BID 07/18/17 Medical Decision Making - Diagnostics EKG Interpretation: EKG interpreted by me reveals sinus rhythm, rate 78, left atrial abnormality, nonspecific intraventricular conduction delay, left ventricular hypertrophy. Interpretation: abnormal EKG ED Course/Re-evaluation: 32 year old male with IgA nephropathy and end stage renal disease presents in need of dialysis. Physical exam reveals bilateral rales at bases on auscultation. He is pale and uncomfortable-appearing. Plan for labs including CBC, BMP. Plan for EKG. EKG shows sinus rhythm, rate 78. See full interpretation above. Potassium elevated at 6.4, creatinine elevated at 9.0. Insulin/glucose, calcium gluconate and Kayexalate given for hyperglycemia. Plan to admit, consult nephrology. The patient will require dialysis. 10:[address] Shah, mathematics lecturer. He will consult for dialysis. 10:47 Spoke with hospitalist service. Dr. Guillermo accepts admission for emergent dialysis. Differential Diagnosis: Differential diagnosis includes does not limited to pulmonary edema, dysrhythmia , infection, hypertension. Critical Care Time: I spent a total of 30 minutes of critical care time by me in obtaining history, performing a physical exam, bedside monitoring of interventions, collecting and interpreting tests, treatment of hyperkalemia and discussion with consultants but not including time spent performing procedures. Organ at risk: metabolic, cardiac - Data Points Laboratory Results: Laboratory Results 07/18/17 09:25 07/18/17 09:25 Medications Given: Discontinued Medications Albuterol (Proventil Neb) 3 ml IH EDNOW ONE Stop: 07/18/17 11:17 Last Admin: 07/18/17 11:26 Dose: 3 ml Calcium Gluconate (Calcium Gluconate) 1 gm IVP EDNOW ONE Stop: 07/18/17 10:22 Last Admin: 07/18/17 11:09 Dose: 1 gm Dextrose (Dextrose 50% Syringe) 25 gm IVP EDNOW ONE Stop: 07/18/17 10:22 Last Admin: 07/18/17 11:26 Dose: 25 gm Insulin Human Regular 10 unit/Miscellaneous Medication 1 ea / Dextrose 500.1 mls @ 50 mls/hr IV EDNOW ONE Stop: 07/18/17 20:21 Last Admin: 07/18/17 11:37 Dose: Not Given Insulin Human Regular (Humulin R) 10 unit IVP ONCE ONE Stop: 07/18/17 11:16 Last Admin: 07/18/17 11:26 Dose: 10 units Sodium Polystyrene Sulfonate (Kayexalate) 30 gm PO EDNOW ONE Stop: 07/18/17 10:22 Last Admin: 07/18/17 11:12 Dose: Not Given Departure - Departure Disposition: [facility] Acute Clinical Impression: Hyperkalemia, End stage renal disease Condition: Fair Report Scribed for: Roya Price Report Scribed by: Deandra Guillen Date of Report: 07/18/17 Time of Report: 09:07 Physician Review and Approval Statement: 07/18/17 09:07 Portions of this note were transcribed by a medical librarian. I personally performed a history, physical exam, medical decision making, and confirmed accuracy of information the transcribed note.
[2017-07-18 09:32] LABS: % IMMATURE GRANULYOCYTES 0.2 % (0.0-1.1); ABSOLUTE IMMATURE GRANULOCYTES 0.02 10^3/uL (0.00-0.10); ADD DIFF? NO; ADD MORPH? NO; ADD SCAN? YES; FRAGMENT RBC FLAG 0 (0-99); HEMATOCRIT 36.2 % (40.0-51.0); HEMOGLOBIN 11.7 g/dL (13.7-17.5); LEFT SHIFT FLG 0 (0-99); LIPEMIA HEMOLYSIS FLAG 80 (0-99); MEAN CELL HEMOGLOBIN 32.4 pg (27.9-34.1); MEAN CELL HEMOGLOBIN CONCENTR. 32.3 g/dL (32.4-36.7); MEAN CELL VOLUME 100.3 fL (81.5-99.8); MEAN PLATELET VOLUME 9.7 fL (8.7-11.7); PLATELET CLUMPS FLAG 0 (0-99); PLATELET COUNT 148 10^3/uL (150-400); RED BLOOD CELL COUNT 3.61 10^6/uL (4.40-6.38); RED CELL DISTRIBUTION WIDTH 14.7 % (11.5-15.2)
[2017-07-18 09:36] LABS: ATYPICAL LYMPHOCYTE FLAG 120 (0-99)
--- NOTE | 2017-07-18 09:38 | CPEKG ---
Heart Rate: 78 RR Interval: 769 P-R Interval: 208 QRSD Interval: 112 QT Interval: 400 QTC Interval: 456 P [place]: 60 QRS [place]: -17 T Wave [place]: 93 EKG Severity - ABNORMAL ECG - EKG Impression: SINUS RHYTHM EKG Impression: LEFT ATRIAL ABNORMALITY EKG Impression: NONSPECIFIC INTRAVENTRICULAR CONDUCTION DELAY EKG Impression: LEFT VENTRICULAR HYPERTROPHY Electronically Signed By: Roya Price 18-Jul-2017 15:02:40
[2017-07-18 09:45] LABS: ANION GAP 21 mEq/L (8-16); CALCIUM 9.3 mg/dL (8.5-10.4); CARBON DIOXIDE 22 mEq/l (22-31); CHLORIDE 94 mEq/L (97-110); GLOMERULAR FILTRATION RATE 7; GLUCOSE 83 mg/dL (70-100); SODIUM 137 mEq/L (134-144)
[2017-07-18 10:02] LABS: POTASSIUM 6.4 mEq/L (3.5-5.2)
[2017-07-18] MEDS ORDERED: INSULIN REGULAR HUMAN 100 UNIT/ML IVP ONE ×2 (10:21→11:15)
[2017-07-18] MEDS ORDERED: SODIUM POLY SULF 15 GM/60 ML BOTTLE PO ONE (10:21)
[2017-07-18] MEDS ORDERED: INSULIN REGULAR HUMAN 10 UNIT, COSIGN. REQUIRED 1 EA in D10W 500 ML IV ONE (10:21)
[2017-07-18] MEDS ORDERED: CALCIUM GLUC 10% 1 GM/10 ML VIAL IVP ONE (10:21)
[2017-07-18] MEDS ORDERED: D50W 25 GM/50 ML SYR IVP ONE (10:21)
[2017-07-18 10:24] LABS: SCAN POSITIVE
[2017-07-18 10:27] VITALS: O2SAT 96
[2017-07-18 10:33] LABS: PLATELET ESTIMATE DECREASED (ADEQ)
[2017-07-18 10:34] LABS: MACROCYTES 1+
[2017-07-18] MEDS ORDERED: ALBUTEROL 3 ML DEYVIAL IH ONE (11:16)
[2017-07-18 12:26] VITALS: BP 147/107; PULSE 79; RESP 18; TEMP 98.8
[2017-07-18] MEDS ORDERED: ACETAMINOPHEN 325 MG TAB PO PRN (12:39)
[2017-07-18] MEDS ORDERED: ONDANSETRON DISINTEGRATING 4 MG TAB PO PRN (12:39)
[2017-07-18] MEDS ORDERED: ONDANSETRON 4 MG/2 ML VIAL IVP PRN (12:39)
[2017-07-18] MEDS ORDERED: CETIRIZINE 10 MG TAB PO PRN (12:54)
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
--- NOTE | 2017-07-18 13:43 | GHP ---
[f rep st] HISTORY AND PHYSICAL DATE OF ADMISSION: 07/18/2017 CHIEF COMPLAINT: Needs dialysis. HISTORY OF PRESENT ILLNESS: This is a 32-year-old man with end-stage renal disease, who presents wit h symptoms consistent with when he has needed dialysis in the past. He mostly complains of some ches t and abdominal tightness as well as cough productive of sputum. He says that this is how he normall y feels when he needs dialysis. He is not complaining of any chest pain or any swelling. He was dis charged 2 days ago with a potassium of 3.7 after 2 runs of dialysis. The patient was seen with the assistance of a data conversion analyst. PAST MEDICAL/SURGICAL HISTORY: 1. End-stage renal disease due to IgA nephropathy. 2. Status post renal transplantation which failed as he did not have access to transplant medication . MEDICATIONS: Please see medication reconciliation. ALLERGIES: Heparin and adhesive tape. FAMILY HISTORY: He had a cousin with polycystic kidney disease. SOCIAL HISTORY: He does not drink, smoke or use illegal drugs. REVIEW OF SYSTEMS: A 10-point review of systems is conducted and is negative except per HPI. PHYSICAL EXAMINATION: VITAL SIGNS: Blood pressure 147/107, heart rate 79, respiration rate 18, satu rating 96% on room air, temperature is 37.1. GENERAL: The patient is a very pleasant man who is on dialysis, appears comfortable. HEENT: Shows him to be normocephalic atraumatic. CARDIOVASCULAR: Sh ows a regular rate and rhythm. There are no murmurs, rubs, or gallops. PULMONARY: Lungs clear to a uscultation bilaterally. ABDOMEN: Soft, nontender, nondistended. SKIN: No rash. GENITOURINARY: No Feliciano. NEUROLOGIC: Shows him to be alert and oriented x3. He is moving all extremities. PSYCHIA TRIC: Shows normal mood and affect. MUSCULOSKELETAL: Shows a left fistula which is accessed. LABORATORY DATA: Potassium 6.4, bicarb 22, creatinine 9, white count 11, hemoglobin 11.7. I reviewed his chart. I personally viewed and interpreted his EKG. This shows peaked T-waves in his precordial leads. Otherwise this is sinus rhythm. Voltage appears to be LVH. IMPRESSION AND PLAN: A 32-year-old man needs emergent dialysis. 1. Life-threatening hyperkalemia needing emergent dialysis: He is currently being dialyzed. He rec eived appropriate treatment in the emergency department including insulin, dextrose, calcium gluconat e and Kayexalate. We will recheck his potassium in the morning and monitor him on telemetry. 2. End-stage renal disease without access to outpatient dialysis: Currently getting emergent dialys is. Thus far, he has gone only 2-3 days out of the hospital between his dialysis runs. 3. Anemia of chronic kidney disease: No need for transfusion. /[id number]/MODL
[2017-07-18] MEDS ORDERED: CALCIUM ACETATE 667 MG CAP PO SCH (18:00)
[2017-07-18] MEDS ORDERED: BISOPROLOL FUMARATE 5 MG TAB PO SCH (21:00)
--- NOTE | 2017-07-18 22:04 | GDS ---
[f rep st] DISCHARGE SUMMARY ALL DIAGNOSES: 1. Hyperkalemia. 2. End-stage renal disease. 3. Hypertension. 4. Anemia of chronic kidney disease. HOSPITAL COURSE: A 32-year-old man undocumented presented for emergent dialysis with critical hyperk alemia. His potassium was 6.4. He did have EKG changes consistent with this. He underwent dialysis which removed 4 L. He is feeling much better. Feels ready to be discharged. I have discussed this with Dr. Shah who agrees that is appropriate. He apparently may be able to get citizenship given his refugee status. It is also possible that he m ay have an outpatient bed at [facility] starting next week. BILLING: I spent less than 30 minutes on the day of discharge coordinating his discharge care. /[id number]/MODL
--- NOTE | 2017-07-19 10:54 | ASDISCHSUM ---
Discharge Information Plan Status:Home with No Needs Medically Cleared to Leave:07/18/2017 Discharge Date:07/18/2017 05:03 PM CM D/C Disposition:Home, Routine, Self-Care ADT D/C Disposition:Home, Routine, Self-Care Projected Discharge Date:07/18/2017 12:00 AM Transportation at D/C: Discharge Delay Reason: Follow-Up Date:07/18/2017 12:00 AM Discharge Slot: Final Diagnosis: Placement Information Patient Contact Information Contact Name:ERNIE Relationship:Sister Address:[address] Work Phone: City:[place] [facility] Phone: [facility]/Zip Code:[place] [address] Email: Financial Information Financial Class:Self-Pay Primary Plan Desc:SELF PAY Primary Plan Number: Secondary Plan Desc: Secondary Plan Number: Assessment Information Intervention Information Intervention Type:*Incorrect Registration Date of Service:07/18/2017 12:41 PM Patient Type:Inpatient Staff Member:MARK Schroeder, Xin Hours:0.25 Discipline: Severity:1 (0-1 Hours) Comment:Registered observation; admit order valdo mcgarry for inpatient status.
== END 2017-07-18 17:03 | disposition home or self-care (01) | DRG 640 ==
LOC: OBSVTOIN 12:41 → F2W 15:04
PROVIDERS: ADMIT Student in an Organized Health Care Education/Training Program; ATTEND Student in an Organized Health Care Education/Training Program
PROC: 5A1D00Z (ICD-10-PCS; principal; 2017-07-18)
DX: E87.5 Hyperkalemia (principal); I12.0 Hypertensive chronic kidney disease with stage 5 chronic kidney disease or end stage renal disease; N18.6 End stage renal disease; T86.12 Kidney transplant failure; D63.1 Anemia in chronic kidney disease; Z91.15 Patient's noncompliance with renal dialysis; Z99.2 Dependence on renal dialysis
CPT/HCPCS: 96374; J0610; J1815